=== PATIENT | female | born 1990 | race Caucasian/White ===

== ENCOUNTER 2022-10-31 08:41 | Emergency (ER) | payer BC, SELFPAY ==
[2022-10-31 08:52] VITALS: BP 113/70; PULSE 78; RESP 16; TEMP 36.3; O2SAT 99
--- NOTE | 2022-10-31 09:16 | ED.FEMALEGU ---
HPI - Female Genitourinary General Stated complaint: Urinary Problem History of Present Illness HPI Narrative: Patient presents with urinary symptoms. Burning with urination low abdominal pain frequent urination. Patient also has a problem with chronic constipation and states her last normal BM was 2 days ago. Related Data Allergies Allergy/AdvReac Type Severity Reaction Status Date / Time No Known Allergies Allergy Verified 10/31/22 09:03 Review of Systems Review of Systems: CONSTITUTIONAL: Denies fever, chills, or sweats. EYES: Denies visual changes, redness, or discharge. ENT: Denies rhinorrhea, congestion, sore throat, or otalgia. CARDIOVASCULAR: Denies chest pain, palpitations, or edema. RESPIRATORY: Denies cough or dyspnea. GASTROINTESTINAL: Denies abdominal pain, nausea, vomiting, or diarrhea. GENITOURINARY: Denies dysuria or hematuria. SKIN: Denies rash or itching. MUSCULOSKELETAL: Denies back pain, joint pain, or myalgia. NEUROLOGIC: Denies headache, numbness, or weakness. PSYCHIATRIC: Denies anxiety or depression. PMFSH Comments At time of signature, agree with nursing past medical, surgical, social and family history. There is no relevant family history pertinent to the presenting complaint Exam Narrative: GENERAL: Well-appearing, well-nourished, and in no acute distress. HEAD: Normocephalic, atraumatic. EYES: PERRLA and EOMI. ENT: Nares clear, no rhinorrhea or epistaxis. Mucous membranes moist. NECK: Supple. CHEST: Clear to auscultation. No respiratory distress. HEART: Regular rate and rhythm. No murmur heard. Normal peripheral pulses. ABDOMEN: Soft, nontender, nondistended, normal active bowel sounds. EXTREMITIES: Normal range of motion. No edema. SKIN: Warm, dry, no rash. NEURO: No focal deficits. Alert and oriented x3. Madill Coma Scale Eye Opening: Spontaneous 4 Paul Coma Scale Motor: Obeys Commands 6 Madill Coma Scale Verbal: Oriented 5 Paul Coma Scale Total 15 Course Course Level of Care: Express Care Visit Vital Signs Vital signs: Vital Signs Temperature 36.3 C L 10/31/22 08:52 Pulse Rate 78 10/31/22 08:52 Respiratory Rate 16 10/31/22 08:52 Blood Pressure 113/70 10/31/22 08:52 Pulse Oximetry 99 10/31/22 08:52 Oxygen Delivery Room Air 10/31/22 08:52 Temperature 36.3 C L 10/31/22 08:52 Pulse Rate 78 10/31/22 08:52 Respiratory Rate 16 10/31/22 08:52 Blood Pressure 113/70 10/31/22 08:52 Pulse Oximetry 99 10/31/22 08:52 Oxygen Delivery Room Air 10/31/22 08:52 MDM - Female Genitourinary Lab Data Labs: Urine Glucose Negative Reference Range: Negative Urine Bilirubin Negative Reference Range: Negative Urine Ketone Negative Reference Range: Negative Urine Specific [place] 1.015 Reference Range:1.001-1.035 Urine Blood Negative Reference Range: Negative * * Urine pH 6.0 Reference Range: 5.0-9.0 Urine Protein Negative Reference Range: Negative Urine Urobilinogen 0.2 Reference Range: 0.2-1.0 Urine Nitrate Negative Reference Range: Negative Urine Leukocyte Trace Reference Range: Negative Urine Color Yellow Reference Range: Antoninoo
== END 2022-10-31 09:25 | disposition home or self-care (01) ==
PROVIDERS: Emergency Provider Nurse Practitioner Family
DX: R30.0 Dysuria (principal); K59.00 Constipation, unspecified
CPT/HCPCS: 81003; 87086; 99213; G0463

== ENCOUNTER 2023-03-04 18:45 | Emergency (ER) | payer MEDICARE, MEDICAID, SELFPAY ==
[2023-03-04 18:51] VITALS: BP 119/72; PULSE 80; RESP 16; TEMP 36.8; O2SAT 99
--- NOTE | 2023-03-04 19:27 | ED.GENADULT ---
HPI - General Adult General Chief complaint: Skin/Abscess/Foreign Body Stated complaint: knot on back neck/ck for covid Time Seen by Provider: 03/04/23 19:27 Source: patient, RN notes reviewed and old records reviewed Mode of arrival: ambulatory Limitations: no limitations History of Present Illness HPI narrative: 32 year old female who presents to [facility] care with complaints of noting bump to the left side of her scalp today and it feels like a sun burn to area and also is concerned for exposure to COVID from her nephew who tested positive today.. Patient reports no fevers chills or body aches, denies any cough or any headache discomfort. Patient has not applied any OTC medication to scalp, no lymphadenopathy noted. Patient reports that she was around her nephew a few days ago at his Birthday. MD complaint: excoriated spots on scalp and concerned for exposure to COVID Location: head (scalp) Severity scale (1-10): 2 Treatments prior to arrival: none Related Data Home Medications Medication Instructions Recorded Confirmed lactulose 10 gram/15 mL oral 03/04/23 solution Allergies Allergy/AdvReac Type Severity Reaction Status Date / Time No Known Allergies Allergy Verified 03/04/23 19:06 Review of Systems Review of Systems: CONSTITUTIONAL: Denies malaise, chills, sweats, or fever. EYES: Denies visual changes, redness, or discharge. ENT: Reports no rhinorrhea, congestion, sinus pain, otalgia and no sore throat. CARDIOVASCULAR: Denies chest pain, palpitations, or edema. RESPIRATORY: Reports no cough.? Denies dyspnea. GASTROINTESTINAL: Denies abdominal pain, nausea, vomiting, diarrhea SKIN:excoriated spots to scalp scabbing present MUSCULOSKELETAL: Denies myalgia. NEUROLOGIC: Denies headache. All systems reviewed & are unremarkable except as noted in HPI and below PMFSH Past Medical History Medical History (Updated 03/05/23 @ 14:59 by Hannah Pickens NP) Chronic constipation UTI (urinary tract infection) Social History Social History (Updated 03/05/23 @ 14:55 by Hannah Pickens NP) Smoking status: Never smoker Alcohol intake: never Substance use type: does not use Gender identity (if verbalized by the patient): Female Comments At time of signature, agree with nursing past medical, surgical, social and family history. There is no relevant family history pertinent to the presenting complaint Exam Narrative: GENERAL: Well-appearing, well-nourished, and in no acute distress. HEAD: Normocephalic EYES: PERRLA, conjunctivae clear ENT: Nares clear, turbinates edematous and erythematous, clear discharge. Mucous membranes moist. TM pearly myrick with dull light reflex bilaterally; no tragal tenderness. Oropharynx erythematous without lesions. Tonsils not enlarged and without exudate, no drooling, no hoarseness, no trismus, uvula midline. NECK: Supple. No lymphadenopathy CHEST: Clear to auscultation, breath sounds equal. No wheezing, rhonchi, rales, or stridor. No respiratory distress, speaks in full sentences.SAO2 99% on room air HEART: Regular rate and rhythm. No murmur heard. SKIN: Warm, dry, x2 excoriated areas scalp with scabbing no acute redness, no circumoral clearing of lesions NEURO: Alert and oriented x3. PSYCH: Normal mood and affect Course Course Emergency Course: Patient is aware of diagnosis, understands and agrees to treatment plan.? Anticipatory guidance given.? Patient agrees to follow-up as directed and is aware of reasons to seek care at the emergency department. Portions of this record may have been created with voice recognition software Level of Care: Express Care Visit Vital Signs Vital signs: Vital Signs Temperature 36.8 C 03/04/23 18:51 Pulse Rate 80 03/04/23 18:51 Respiratory Rate 16 03/04/23 18:51 Blood Pressure 119/72 03/04/23 18:51 Pulse Oximetry 99 03/04/23 18:51 Oxygen Delivery Room Air 03/04/23 18:51
== END 2023-03-04 19:52 | disposition home or self-care (01) ==
PROVIDERS: Emergency Provider Registered Nurse; PCP Internal Medicine
DX: L25.9 Unspecified contact dermatitis, unspecified cause (principal); Z20.822 Contact with and (suspected) exposure to COVID-19
CPT/HCPCS: 87426; 99213; G0463